=== PATIENT | male | born 1975 | race Caucasian/White ===

== ENCOUNTER 2022-09-10 01:01 | Inpatient (IN) | payer BC, SELFPAY ==
[2022-09-10] VITALS (13 sets, daily range): BP systolic 132–151; BP diastolic 95–109; PULSE 94–105; RESP 14–22; TEMP 36.1–36.8; O2SAT 91–98
--- NOTE | 2022-09-10 01:31 | CRLHL7_ITS ---
For Patients: As a result of the Century Cures Act, medical imaging exams and procedure reports are released immediately into your electronic medical record. You may view this report before your referring provider. If you have questions, please contact your health care provider. INDICATION: Bilateral leg swelling worsening in the past month. COMPARISON: None available FINDINGS: Ultrasound of the venous drainage of both lower extremities was performed using real-time cook scale imaging (B mode 2D), color flow Doppler and spectral analysis. There is no evidence of deep venous thrombosis. There is normal antegrade flow from the posterior tibial and peroneal veins superiorly through the common femoral vein in both legs. There is normal augmentation and compressibility of these veins. The superior and mid portions of the greater saphenous veins in the thighs are patent. IMPRESSION: No evidence of deep venous thrombosis on ultrasound examination of both lower extremities. Dictated by Nick Oseguera MD @ 09/10/2022 3:40:03 AM (Electronically Signed)
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
[2022-09-10 01:57] LABS: Basophils Absolute Auto 0.06 K/uL (0.00-0.30); Basophils Percent Auto 0.7 % (0.0-3.0); Eosinophils Absolute Auto 0.12 K/uL (0.00-0.50); Eosinophils Percent Auto 1.5 % (0.0-7.0); Hematocrit 44.9 % (37.0-53.0); Hemoglobin* 14.4 gm/dL (13.5-17.5); Immature Granulocytes Abs Auto 0.08 K/uL (0.00-0.30); Lymphocytes Absolute Auto 1.64 K/uL (0.90-2.90); Lymphocytes Percent Auto 20.4 % (20-44); Mean Corpuscular HGB Conc 32 gm/dL (32-36); Mean Corpuscular Hemoglobin 28 pg (26-34); Mean Corpuscular Volume 88 fL (80-100); Monocytes Percent Auto 9.4 % (0.0-11.0); Neutrophils Absolute Auto 5.37 K/uL (1.7-7.0); Platelet Count* 183 K/uL (140-440); RDW Coefficient of Variation % 13.7 % (11.5-15.5); Red Blood Count 5.08 m/uL (4.30-5.90); White Blood Count* 8.02 K/uL (4.50-11.00)
[2022-09-10 02:18] LABS: D Dimer Quantitative* 0.55 ug/ml (0.00-0.50)
[2022-09-10 02:22] LABS: Slide Review Reflex No
[2022-09-10 02:27] LABS: Chloride* 109 mmol/L (96-114)
[2022-09-10 02:28] LABS: Albumin* 3.1 g/dL (3.3-5.0); Potassium* 3.9 mmol/L (3.6-5.1); Sodium* 142 mmol/L (135-149)
[2022-09-10 02:30] LABS: Creatinine* 0.8 mg/dL (0.5-1.5); Estimated Glomerular Filt Rate 111 ml/min
[2022-09-10 02:31] LABS: Alanine Aminotransferase* 68 U/L (4-50); Alkaline Phosphatase* 65 U/L (40-150); Aspartate Amino Transferase* 58 U/L (12-35); Bilirubin Total* 0.4 mg/dL (0.1-1.5); Blood Urea Nitrogen* 15 mg/dL (5-24); Carbon Dioxide* 29 mmol/L (20-32); Glucose* 121 mg/dL (60-115); Total Protein* 5.6 g/dL (6.0-8.3)
[2022-09-10 02:32] LABS: Calcium* 7.9 mg/dL (8.4-10.6)
[2022-09-10 02:34] LABS: C Reactive Protein* 1.7 mg/dL (0.5-1.0)
[2022-09-10 03:42] LABS: NT Pro B Type NatriureticPept* 8110 pg/mL
--- NOTE | 2022-09-10 04:09 | CRLHL7_ITS ---
For Patients: As a result of the Century Cures Act, medical imaging exams and procedure reports are released immediately into your electronic medical record. You may view this report before your referring provider. If you have questions, please contact your health care provider. INDICATION: Edema COMPARISON: None TECHNIQUE: Two views of the chest were acquired FINDINGS: TUBES AND LINES: None. HEART AND MEDIASTINUM: Enlarged heart. LUNGS AND PLEURAL SPACES: Vascular an interstitial process probably representing pulmonary edema/congestive heart failure. No pleural effusion or pneumothorax. OSSEOUS STRUCTURES: Age-appropriate appearance. No acute focal finding. IMPRESSION: Enlarged heart. Vascular and interstitial process probably representing pulmonary edema/congestive heart failure appearance Dictated by Yg Marquez MD @ 09/10/2022 4:56:02 AM (Electronically Signed)
[2022-09-10 04:45] LABS: Troponin, Point-of-Care* 0.03 ng/ml (0.01-0.04)
[2022-09-10 04:46] LABS: Appearance Urine Clear (Clear); Bilirubin Urine Negative (Negative); Blood Urine Negative (Negative); Color Urine Yellow (Yellow); Glucose Urine Negative (Negative); Ketones Urine Negative (Negative); Leukocyte Esterase Urine Negative (Negative); Nitrite Urine Negative (Negative); Protein Urine 1+ (Negative); Specific Gravity Urine 1.025 (1.000-1.030); Urobilinogen Urine 0.2 (0.2-1.0)
[2022-09-10 04:53] LABS: Bacteria Urine Few; RBC Urine 0-2 (0-2); Squamous Epithelial Cell Urine Few (None-Few); WBC Urine 0-2 (0-5)
[2022-09-10] MEDS: POTASSIUM CHLORIDE 10 MEQ CAPSULE ER 40 MEQ PO (04:55)
[2022-09-10] MEDS: FUROSEMIDE 10 MG/ML inj 40 MG IVP ×4 (04:56→17:39)
--- NOTE | 2022-09-10 05:08 | ED.NURSE ---
Patient report called to Ann FIGUEREDO, patient to go to bed 260
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
--- NOTE | 2022-09-10 07:51 | PC.NURSE ---
Pt admitted at 0510. Alert and oriented x3, afebrile. Pt lung sounds were clear, no cough. Pt has edema in both legs. Pt is up ind, voiding, and tolerating therapeutic diet.
[2022-09-10 08:12] LABS: Procalcitonin* 0.08 ng/mL (<0.50)
[2022-09-10] MEDS: SODIUM CHLORIDE 0.9 % (FLUSH) 10 ML SYRINGE 5 ML IVF ×2 (08:25→21:09)
[2022-09-10] MEDS: POTASSIUM BICARB 25 MEQ EFFERVESCENT TAB PO ×2 (08:25→17:39)
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
[2022-09-10] MEDS: PERFLUTREN LIPID MICROSPHERES 2 ML VIAL IV (12:02)
[2022-09-10 14:30] LABS: Chloride* 103 mmol/L (96-114)
[2022-09-10 14:31] LABS: Potassium* 4.2 mmol/L (3.6-5.1); Sodium* 141 mmol/L (135-149)
[2022-09-10 14:33] LABS: Creatinine* 0.9 mg/dL (0.5-1.5); Estimated Glomerular Filt Rate 107 ml/min
[2022-09-10 14:34] LABS: Blood Urea Nitrogen* 16 mg/dL (5-24); Calcium* 8.3 mg/dL (8.4-10.6); Carbon Dioxide* 35 mmol/L (20-32); Glucose* 96 mg/dL (60-115)
[2022-09-10 14:44] LABS: Troponin I* 0.04 ng/mL (0.01-0.04)
--- NOTE | 2022-09-10 17:58 | PC.NURSE ---
Pt cooperative during shift. Pt had no complaints of pain during shift. Pt transfers with EZ Stand. Pt takes medications with applesauce. Pt was encouraged to keep legs up when in chair. Pt refused this and to wear oxygen at times during shift. Pt reeducated on importance of doing these items. Pt?s oxygen levels have been stable during shift ranging from 93%-94% on RA. Pt had some bouts of anxiety throughout shift see EMAR for intervention after redirection and music therapy attempts failed. ? ?
--- NOTE | 2022-09-10 18:01 | PC.NURSE ---
Dr. Wagner updated about Pt's weight loss from diaphoresing him. Hospitalist stated Lasix orders will be looked at tomorrow by AM hospitalist and possibly adjusted since last dose was given for 09/10/22. Dr. Wagner also stated he would put in orders for orthostatic Blood pressures for tomorrow morning.
[2022-09-10] MEDS: ENOXAPARIN 40 MG/0.4 ML INJ SUBCUT (21:09)
[2022-09-11] VITALS (12 sets, daily range): BP systolic 125–151; BP diastolic 74–114; PULSE 95–100; RESP 14–24; TEMP 36.4–37.1; O2SAT 91–95
[2022-09-11 03:09] LABS: Hemoglobin A1C* 5.79 % (0-5.6)
[2022-09-11] MEDS: FUROSEMIDE 10 MG/ML inj 40 MG IVP (06:15)
--- NOTE | 2022-09-11 06:45 | PC.NURSE ---
At 0415 pt reported feeling SOB. Oximeter was placed on left?index finger O2 sats were ranging between 85-86%.?Nurse raised HOB to 90 degrees, encouraged pt to deep breath and cough, pt used incentive spirometer x3 reaching 1200 ml per breath, pt did not cough after. Pt 02 sats did not increase. 1L oxygen via nasal canula was applied to pt. Titus was contacted and updated around 043. Titus called back around 439 with an order for O2 nasal cannula to maintain O2 sats of 90 and to discontinue O2 when pt is able to maintain sats of 92 or greater. Around 0600 am pt wanted oxygen off, pt is now on room air maintaining sats of 91-92% oxygen. ??
--- NOTE | 2022-09-11 06:46 | PC.NURSE ---
Pt alert and oriented x3. Afebrile. Pt denies pain, chest pian, SOB, N/V. Pt is up ind in room tolerating a therapeutic diet. Pt slept throughout most of night. Pt?s output was 1200 overnight and pt?s weight was 275.9 lbs?this morning 08/11/22 previous weight taken on evening shift 09/10/22 was 282.9 lbs. ??
[2022-09-11 06:54] LABS: HCO3 VBG 37 mmol/L (21-28); Ionized Calcium* 1.05 mmol/L (1.11-1.30); PCO2 VBG 50 mmHG (40-50); PO2 VBG 70.1 mmHG (25-47); pH VBG 7.474 (7.32-7.43)
[2022-09-11 06:57] LABS: Hematocrit 46.1 % (37.0-53.0); Hemoglobin* 15.1 gm/dL (13.5-17.5); Mean Corpuscular HGB Conc 33 gm/dL (32-36); Mean Corpuscular Hemoglobin 28 pg (26-34); Mean Corpuscular Volume 87 fL (80-100); Platelet Count* 184 K/uL (140-440); Red Blood Count 5.32 m/uL (4.30-5.90)
[2022-09-11 07:11] LABS: Slide Review Reflex No
[2022-09-11 07:23] LABS: Albumin* 3.2 g/dL (3.3-5.0); Chloride* 101 mmol/L (96-114)
[2022-09-11 07:24] LABS: Potassium* 4.1 mmol/L (3.6-5.1); Sodium* 139 mmol/L (135-149)
[2022-09-11 07:26] LABS: Aspartate Amino Transferase* 49 U/L (12-35); Bilirubin Total* 1.1 mg/dL (0.1-1.5); Carbon Dioxide* 37 mmol/L (20-32); Cholesterol* 171 mg/dL (90-199); Creatinine* 0.7 mg/dL (0.5-1.5); Estimated Glomerular Filt Rate 115 ml/min; Total Protein* 5.8 g/dL (6.0-8.3)
[2022-09-11 07:27] LABS: Alanine Aminotransferase* 63 U/L (4-50); Alkaline Phosphatase* 53 U/L (40-150); Blood Urea Nitrogen* 14 mg/dL (5-24); Calcium* 8.1 mg/dL (8.4-10.6); Glucose* 143 mg/dL (60-115); Triglycerides* 115 mg/dL (40-149)
[2022-09-11 07:28] LABS: HDL Cholesterol* 37 mg/dL (>=40); LDL Cholesterol Calculated 111 mg/dL (<100)
[2022-09-11] MEDS: POTASSIUM BICARB 25 MEQ EFFERVESCENT TAB PO ×2 (07:41→18:01)
[2022-09-11 08:05] LABS: NT Pro B Type NatriureticPept* 7170 pg/mL
[2022-09-11 08:07] LABS: Troponin I* 0.05 ng/mL (0.01-0.04)
[2022-09-11] MEDS: SODIUM CHLORIDE 0.9 % (FLUSH) 10 ML SYRINGE 5 ML IVF ×2 (08:21→20:17)
[2022-09-11 08:24] LABS: Thyroid Stimulating Hormone* 0.624 uIU/mL (0.270-4.20)
[2022-09-11] MEDS: 0.9 % SODIUM CHLORIDE 250 ml IV (08:24)
--- NOTE | 2022-09-11 09:16 | P.IMPN_ITS ---
Progress Note: A&P Assessment and plan (1) Dilated cardiomyopathy: Problem details: [facility] phone consult 09/11/22 -discussed ischemic workup - will pass while here. -swap lisinopril for valsartan -start aspirin -transition to oral lasix -add small dose of coreg, spironolactone -outpatient close f/u Echo 09/10 - Dilated cardiomyopathy Moderately increased left ventricular size, mild increased wall thickness, severely reduced global systolic function, calculated EF is about 24% Right ventricular cavity size is mildly enlarged, global systolic RV function is moderately reduced Moderately enlarged left atrium Mitral valve is normal mild mitral regurg The inferior vena cava is dilated Moderately increased estimated pulmonary pressures by tricuspid regurg velocity and right atrial pressure, 32+ RAP The plan is to diuresis and get guideline directed medical therapy sta rted/tolerated and get cards f/u established. Status: Acute (2) ADHD (attention deficit hyperactivity disorder): Problem details: continue current med but start decreasing freqency from TID to BID Status: Acute (3) Obesity: Problem details: noted. will be in discussion of plan going forward Status: Acute (4) Poor dentition: Status: Acute (5) Hyperlipidemia: Problem details: lipid profile unremarkable. Status: Acute Subjective Date Seen: 09/11/22 Interval history: Daily Progress Note - Hospital Medicine Day #: 2 CC: New onset CHF, dilated cardiomyopathy OVERNIGHT UPDATES FROM STAFF & MED, LAB, IMAGING UPDATES pt has lost 25lbs with lasix 40mg IV q8 for several doses. on RA. bored, restless to go home. 151/93 Pulse 99 Respiratory rate 24 92% on room air Temp 97.7? Starting weight 136.3 kilos Today's weight 124.9 kilos Delta is 25 lb CBC unremarkable PH is 7.47 Electrolytes are unremarkable. Function is stable at 0.7, potassium is stable at 4.1 Calcium is a little low at 1.05 Troponin went from 0.03-0.05 Not diabetic, A1c 5.8 TSH 0.6 Unremarkable lipid panel Objective: Vitals: see above Lungs: Clear. Cardiac: S1S2. 2-3+ pitting edema lower extremity. Disposition/Potential discharge - Likely to return to previous living situation. Total time is 35 minutes with greater than 50% spent in counseling and coordination of care. Exam Const: Vital Signs, click to edit/add: Vital Signs - 24 hr 09/10/22 11:40 09/10/22 15:02 09/10/22 15:27 Temperature 97.9 F 98.1 F Pulse Rate 101 H Pulse Rate [Left R adial] 105 H 103 H Pulse Rate [orthos tatic lying] Pulse Rate [orthos tatic sitting] Pulse Rate [orthos tatic standing] Respiratory Rate 20 18 Blood Pressure [Ri ght Arm] 134/95 H 148/107 H Blood Pressure [or thostatic lying Ri ght Arm] Blood Pressure [or thostatic sitting] Blood Pressure [or thostatic standing Right Arm] Pulse Oximetry 91 94 Oxygen Delivery Me thod Room Air Room Air 09/10/22 15:29 09/10/22 19:30 09/10/22 23:10 Temperature 97.9 F Pulse Rate 94 Pulse Rate [Left R adial] 103 H 100 Pulse Rate [orthos tatic lying] Pulse Rate [orthos tatic sitting] Pulse Rate [orthos tatic standing] Respiratory Rate 18 16 Blood Pressure [Ri ght Arm] 145/102 H Blood Pressure [or thostatic lying Ri ght Arm] Blood Pressure [or thostatic sitting] Blood Pressure [or thostatic standing Right Arm] Pulse Oximetry 94 Oxygen Delivery Me thod Room Air 09/10/22 23:10 09/10/22 23:10 09/11/22 05:55 Temperature 98.3 F Pulse Rate Pulse Rate [Left R adial] 94 97 Pulse Rate [orthos tatic lying] Pulse Rate [orthos tatic sitting] Pulse Rate [orthos tatic standing] Respiratory Rate 14 14 Blood Pressure [Ri ght Arm] 141/105 H Blood Pressure [or thostatic lying Ri ght Arm] Blood Pressure [or thostatic sitting] Blood Pressure [or thostatic standing Right Arm] Pulse Oximetry 95 91 Oxygen Delivery Me thod Room Air 09/11/22 04:35 09/11/22 06:00 09/11/22 07:25 Temperature 98.3 F 97.7 F Pulse Rate Pulse Rate [Left R adial] 97 99 Pulse Rate [orthos tatic lying] 96 Pulse Rate [orthos tatic sitting] 97 Pulse Rate [orthos tatic standing] 96 Respiratory Rate 14 24 Blood Pressure [Ri ght Arm] 140/90 H 150/114 H Blood Pressure [or thostatic lying Ri ght Arm] 132/96 H Blood Pressure [or thostatic sitting] 125/102 H Blood Pressure [or thostatic standing Right Arm] 130/91 H Pulse Oximetry 93 92 Oxygen Delivery Me thod Room Air Room Air 09/11/22 07:00 09/11/22 07:27 09/11/22 07:00 Temperature Pulse Rate 99 Pulse Rate [Left R adial] 99 99 Pulse Rate [orthos tatic lying] Pulse Rate [orthos tatic sitting] Pulse Rate [orthos tatic standing] Respiratory Rate 24 Blood Pressure [Ri ght Arm] 151/93 H Blood Pressure [or thostatic lying Ri ght Arm] Blood Pressure [or thostatic sitting] Blood Pressure [or thostatic standing Right Arm] Pulse Oximetry Oxygen Delivery Me thod Labs Labs: Laboratory Results - last 24 hr 09/10/22 09/10/22 09/11/22 01:45 14:00 06:20 WBC 8.80 RBC 5.32 Hgb 15.1 Hct 46.1 MCV 87 MCH 28 MCHC 33 Plt Count 184 VBG pH 7.474 H VBG pCO2 50 VBG pO2 70.1 H VBG HCO3 37 H Sodium 141 139 Potassium 4.2 4.1 Chloride 103 101 Carbon Dioxide 35 H 37 H BUN 16 14 Creatinine 0.9 0.7 Estimated GFR 107 115 Glucose 96 143 H Hemoglobin A1c 5.79 H Lactate 1.0 Calcium 8.3 L 8.1 L Ionized Calcium Emelyn 1.05 L Magnesium 2.0 Total Bilirubin 1.1 AST 49 H ALT 63 H Alkaline Phosphatase 53 Troponin I 0.04 0.05 H C-Reactive Protein 2.0 H NT-Pro-B Natriuret Pep 7170 Total Protein 5.8 L Albumin 3.2 L Triglycerides 115 Cholesterol 171 LDL Cholesterol, Calc 111 H HDL Cholesterol 37 L TSH 0.624
[2022-09-11] MEDS: lisinopriL 5 MG TABLET PO (09:25)
[2022-09-11] MEDS: SPIRONOLACTONE 25 MG TABLET 12.5 MG PO (14:13)
[2022-09-11] MEDS: FUROSEMIDE 40 MG TABLET PO (14:14)
--- NOTE | 2022-09-11 18:21 | PC.NURSE ---
End of Shift: Patient pleasant and cooperative. Patient vitally stable, lungs clear, BS WNL, IV intact. Patient independent in room, and denies pain. Patient urinating well and had 1 BM. Patient tolerating regular diet. Tele=NSR.
[2022-09-11] MEDS: carvediloL 6.25 MG TABLET 3.125 MG PO (20:16)
[2022-09-11] MEDS: ENOXAPARIN 40 MG/0.4 ML INJ SUBCUT (20:16)
[2022-09-12 02:27] VITALS: BP 123/103; PULSE 96; RESP 18; TEMP 36.4; O2SAT 95
--- NOTE | 2022-09-12 04:16 | PC.NURSE ---
Pt rested well this night. Up IND in room and voiding large amounts. BP remains elevated. Afebrile. Reporting zero pain. HR controlled. 1+ edema Bilat LEs. LS Clear.
[2022-09-12 04:44] VITALS: O2SAT 96
[2022-09-12 06:06] VITALS: BP 121/96; BP 126/90; BP 128/82; PULSE 100; PULSE 97; PULSE 98
[2022-09-12 07:00] VITALS: BP 126/78; PULSE 90; PULSE 94; RESP 24; TEMP 36.8; O2SAT 91
[2022-09-12 07:30] LABS: HCO3 VBG 35 mmol/L (21-28); Ionized Calcium* 1.08 mmol/L (1.11-1.30); PCO2 VBG 53 mmHG (40-50); PO2 VBG 67.6 mmHG (25-47)
[2022-09-12 07:48] LABS: Chloride* 99 mmol/L (96-114); Potassium* 4.2 mmol/L (3.6-5.1); Sodium* 137 mmol/L (135-149)
[2022-09-12 07:51] LABS: Blood Urea Nitrogen* 14 mg/dL (5-24); Carbon Dioxide* 34 mmol/L (20-32); Creatinine* 0.7 mg/dL (0.5-1.5); Estimated Glomerular Filt Rate 115 ml/min; Glucose* 194 mg/dL (60-115)
[2022-09-12 07:52] LABS: Calcium* 8.3 mg/dL (8.4-10.6); Magnesium* 2.1 mg/dL (1.5-2.6)
[2022-09-12 08:03] LABS: Troponin I* 0.03 ng/mL (0.01-0.04)
[2022-09-12 08:10] LABS: NT Pro B Type NatriureticPept* 5090 pg/mL
[2022-09-12] MEDS: POTASSIUM BICARB 25 MEQ EFFERVESCENT TAB PO (09:12)
[2022-09-12] MEDS: ASPIRIN 81 MG TABLET EC PO (09:12)
[2022-09-12] MEDS: carvediloL 6.25 MG TABLET 3.125 MG PO (09:12)
[2022-09-12] MEDS: SPIRONOLACTONE 25 MG TABLET 12.5 MG PO (09:13)
[2022-09-12] MEDS: VALSARTAN 80 MG TABLET 40 MG PO (09:13)
[2022-09-12] MEDS: FUROSEMIDE 40 MG TABLET 80 MG PO (09:14)
[2022-09-12 11:00] VITALS: BP 114/73; PULSE 97; RESP 24; O2SAT 95
[2022-09-12 15:00] VITALS: RESP 24
--- NOTE | 2022-09-12 15:17 | NUTR.NU ---
MATTIE with diet education related to new diagnosis of CHF. 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 ([employer]ural postal mail delivery). Nutrition education provided on a low sodium diet related to congestive heart failure.? Verbal and written information provided. Recommend limiting sodium to 2,000 mg per day.? Discussed foods recommended and to avoid.? Handouts provided from [facility] on heart failure nutrition therapy, sodium content of foods, heart healthy label reading tips, sodium-free flavoring tips and heart healthy cooking and shopping tips.? Patient verbalized understanding.??Stated the substitutes he could make for high sodium foods. Especially willing to increase fruits and vegetables. Knows this would be healthier overall. RDN's contact information was provided and patient was encouraged to call with questions.?
--- NOTE | 2022-09-12 16:01 | PC.NURSE ---
Addendum entered by Cheri Tarango RN 09/12/22 16:07: Pt was not given 1400 Lasix before discharge. Database Developer called and spoke to pt over phone at 1550. Pt stated they picked up Rx. Database Developer instructed pt to take the second dose of Lasix now, and to take all second dose prescriptions in evening Original Note: Nursing Care Hours: [id number] Pt this shift calm and cooperative, alert and oriented. No c/o chest pain or SOB. Tele is NSR. Independent in room. Independent elimination. 1750 u/o pale yellow. Two BM per pt. 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 Pt agreed to try and calling by self, pt eager to go home. Hospitalist made aware, follow-up call will be made in coming days to verify appointment and to check pt status.
--- NOTE | 2022-09-12 16:25 | P.DS_ITS ---
DS: Providers Provider Date Seen: 09/12/22 Date of admission: 09/10/22 07:31 Primary care physician: Severo Delarosa MD Admitting Clinician: Cheri Garcia MD Attending Physician on discharge: Meche Cassidy MD [facility] Date of Discharge: 09/12/22 DS: Diagnosis Discharge Diagnosis (1) Dilated cardiomyopathy: Status: Acute Problem details: Likely viral myocarditis, ischemia was less of a concern. No obvious or recurrent arrhythmia or ectopy. Sinus tach and hypertensive while he was here. -discussed ischemic workup - will pass while here. -valsartan, aspirin, Coreg, spironolactone -transition to titrated his Lasix to 80 mg b.i.d. with potassium and calcium replacement -outpatient close f/u Echo 09/10 - Dilated cardiomyopathy Moderately increased left ventricular size, mild increased wall thickness, severely reduced global systolic function, calculated EF is about 24% Right ventricular cavity size is mildly enlarged, global systolic RV function is moderately reduced Moderately enlarged left atrium Mitral valve is normal mild mitral regurg The inferior vena cava is dilated Moderately increased estimated pulmonary pressures by tricuspid regurg velocity and right atrial pressure, 32+ RAP (2) ADHD (attention deficit hyperactivity disorder): Status: Acute Problem details: continue current med but start decreasing freqency from TID to BID (3) Obesity: Status: Acute Problem details: noted. will be in discussion of plan going forward DS: Summary Hospital Course Hospital Course: HOSPITALIST DISCHARGE SUMMARY ATTENDING PHYSICIAN: Meche Cassidy MD FINAL DIAGNOSIS: New onset CHF (systolic, acute, new York Heart classification 2; HFrEF) Dilated cardiomyopathy ADHD HOSPITAL FOLLOWUP ISSUES: 1. Cardiology: Appointment will be made with the [facility] heart failure clinic. He is to weigh himself every day. Adjustment to his Lasix as needed was dictated into the discharge patient summary. Ischemia and myocarditis workup pending 2. PCP establishment. He chews tobacco, he is on ADHD meds and he needs weight loss. REFERRALS WHILE ADMITTED: Phone consultation with Cardiology REFERRALS AFTER DISCHARGE: Cardiology BRIEF HOSPITAL COURSE: Nano is a 47-year-old male who presented in acute heart failure. This was a new diagnosis. He had 3+ pitting edema, recent 35 lb weight gain, poor exercise tolerance for the last 3 months. No evidence of ACS upon presentation. Workup revealed a dilated cardiomyopathy with an EF between 20 and 25%. He was diuresed initially with IV Lasix and then a p.o. regimen. We initiated oral guideline directed therapy which included Lasix, Coreg, valsartan, aspirin, spironolactone. We maintained his potassium levels and followed his creatinine. He had over 25 lb weight loss during this admission. He was discharged in improved condition with outpatient workup and management to follow. SUBSTANTIVE NOTATIONS ON IMAGING, LAB, MICROBIOLOGY/PATHOLOGY STUDIES: Echo 09/10 - Dilated cardiomyopathy Moderately increased left ventricular size, mild increased wall thickness, severely reduced global systolic function, calculated EF is about 24% Right ventricular cavity size is mildly enlarged, global systolic RV function is moderately reduced Moderately enlarged left atrium Mitral valve is normal mild mitral regurg The inferior vena cava is dilated Moderately increased estimated pulmonary pressures by tricuspid regurg velocity and right atrial pressure, 32+ RAP Initial weight was 300 lb, down to 275 at discharge. Initial BNP was 7200, down to 5000 at discharge. No evidence of diabetes, hypo or hyperthyroidism and he had a unremarkable lipid panel. His calcium was low and this was replaced. DISCHARGE MEDICATIONS: See Reconciled list - SIGNIFICANT CHANGES: See Mar for several medication REVIEW OF SYSTEMS No new chest pain or dyspnea Pain controlled No voiding difficulties Tolerating diet challenge PHYSICAL EXAM: CONSTITUTIONAL: VITAL SIGNS: see record. HEENT: Normocephalic, atraumatic. PERRL, EOMI, conjunctivae pink, no scleral icterus. Ears and nose externally normal. Pharynx normal. NECK: No JVD. No carotid bruit, no thyromegaly, no adenopathy. CHEST: Clear to auscultation bilaterally. HEART: S1 and S2 normal. Edema ABDOMEN: Soft, nontender. Normal bowel sounds. MUSCULOSKELETAL: No gross joint deformity or swelling. NEURO: Cranial nerves intact. Grossly intact. No asymmetric findings. SKIN: No rashes, petechiae, concerning changes PSYCHIATRIC: Mood euthymic. DISPOSITION: Home with friends Time spent on discharge 37 minutes. Time Spent with Patient Time attestation: Total time spent providing and/or coordinating discharge services: Exam Const: Vital Signs, click to edit/add: Vital Signs - 24 hr 09/11/22 19:11 09/11/22 22:08 09/11/22 22:54 Temperature 98.7 F 97.5 F L Pulse Rate 97 Pulse Rate [Left R adial] 96 96 Pulse Rate [orthos tatic lying] Pulse Rate [orthos tatic sitting] Pulse Rate [orthos tatic standing] Respiratory Rate 18 18 Blood Pressure [Le ft Arm] 135/107 H 126/97 H Blood Pressure [or thostatic lying Ri ght Arm] Blood Pressure [or thostatic sitting] Blood Pressure [or thostatic standing Right Arm] Pulse Oximetry 95 95 Oxygen Delivery Me thod Room Air Room Air 09/11/22 22:55 09/12/22 02:27 09/12/22 04:44 Temperature 97.5 F L Pulse Rate Pulse Rate [Left R adial] 96 96 Pulse Rate [orthos tatic lying] Pulse Rate [orthos tatic sitting] Pulse Rate [orthos tatic standing] Respiratory Rate 18 18 Blood Pressure [Le ft Arm] 123/103 H Blood Pressure [or thostatic lying Ri ght Arm] Blood Pressure [or thostatic sitting] Blood Pressure [or thostatic standing Right Arm] Pulse Oximetry 95 96 Oxygen Delivery Me thod Room Air 09/12/22 06:06 09/12/22 07:00 09/12/22 07:00 Temperature Pulse Rate 90 Pulse Rate [Left R adial] 94 Pulse Rate [orthos tatic lying] 98 Pulse Rate [orthos tatic sitting] 97 Pulse Rate [orthos tatic standing] 100 Respiratory Rate 24 Blood Pressure [Le ft Arm] Blood Pressure [or thostatic lying Ri ght Arm] 126/90 H Blood Pressure [or thostatic sitting] 121/96 H Blood Pressure [or thostatic standing Right Arm] 128/82 Pulse Oximetry Oxygen Delivery Me thod 09/12/22 07:00 09/12/22 11:00 09/12/22 15:00 Temperature 98.2 F Pulse Rate Pulse Rate [Left R adial] 94 97 Pulse Rate [orthos tatic lying] Pulse Rate [orthos tatic sitting] Pulse Rate [orthos tatic standing] Respiratory Rate 24 24 24 Blood Pressure [Le ft Arm] 126/78 114/73 Blood Pressure [or thostatic lying Ri ght Arm] Blood Pressure [or thostatic sitting] Blood Pressure [or thostatic standing Right Arm] Pulse Oximetry 91 95 Oxygen Delivery Me thod Room Air Room Air DS: Data Data Completed and Pending Labs on day of discharge: Labs from last 24 hours 09/12/22 07:19 VBG pH 7.430 VBG pCO2 53 H VBG pO2 67.6 H VBG HCO3 35 H Sodium 137 Potassium 4.2 Chloride 99 Carbon Dioxide 34 H BUN 14 Creatinine 0.7 Estimated GFR 115 Glucose 194 H Calcium 8.3 L Ionized Calcium Emelyn 1.08 L Magnesium 2.1 Troponin I 0.03 NT-Pro-B Natriuret Pep 5090 Discharge Plan Discharge Disposition: Home, Self-Care Date of Admission: 09/10/22 07:31 Attending Provider on Discharge: Meche Cassidy Primary Care Provider: Severo Delarosa Condition: Stable Anticipated Discharge Date/Time: 09/12/22 11:39 Discharge Medications: New carvedilol 6.25 mg Tablet 3.125 mg PO BID Qty: 60 0RF valsartan 80 mg Tablet 40 mg PO DAILY Qty: 30 0RF aspirin 81 mg Tablet,Delayed Release (Dr/Ec) 81 mg PO DAILY Qty: 90 0RF spironolactone 25 mg Tablet 12.5 mg PO DAILY Qty: 30 0RF Effer-K 25 mEq Tablet, Effervescent 25 meq PO BIDWM Qty: 60 0RF calcium carbonate-vitamin D3 [Oyster Shell Calcium-Vit D3] 500 mg-5 mcg (200 unit) Tablet 2 tab PO BIDWM Qty: 120 0RF furosemide [Lasix] 40 mg tablet 80 mg PO BID Qty: 120 0RF Rx Instructions: this is the correct number to dispense. the dose is 80mg but I neglected to realize it was 40mg tabs. Continued cyclobenzaprine 10 mg tablet 10 mg PO BID PRN (Reason: muscle spasm) Qty: 30 0RF Changed dextroamphetamine-amphetamine 20 mg tablet 20 mg PO BID Qty: 90 0RF Discontinued doxycycline hyclate 100 mg capsule 100 mg PO BID Qty: 20 0RF albuterol sulfate 90 mcg/actuation HFA aerosol inhaler 2 inh inhalation Q6H PRN (Reason: shortness of breath or wheezing) Qty: 8.5 0RF codeine-guaifenesin 10-100 mg/5 mL liquid 10 ml PO BID PRN (Reason: cough) naproxen 500 mg tablet 500 mg PO BID PRN (Reason: pain) Discharge Orders: Discharge Order (Routine); Ordered 09/12/22 Ordered By: Meche Cassidy Patient Education: Spironolactone (By mouth), Furosemide (By mouth), Potassium Chloride (By mouth), Aspirin (By mouth), Valsartan (By mouth), Carvedilol (By mouth), Calcium/Vitamin D Supplement (By mouth), Heart Failure (DC) Additional Instructions: 1. Weigh yourself naked every morning after you pee and before you eat or drink. Target weight is 276 or less. If you weigh in at 282-284lbs take an additional dose of Lasix (40mg) and an extra potassium pill at the same time you'd take the regular dose. If you weigh in greater than 285 -do the extra dose but put a call into primary care and/or lime filter operator. 2. Im establishing you with primary care at [facility] in [place] and with [facility]. Activity Level: Activity as Tolerated Discharge Diet: Heart Healthy (2 gm sodium, low fat) Follow Up Appointments: [facility] [Provider Group] - 09/19/22 (1-2 weeks - Ask for an appt for a new patient consult in the Congestive Heart Failure clinic. It's ok for him to be booked at the [place] location. I'd like to have him seen within 1-2 weeks. ) Ilene Blackmon DO [Staff Physician] - 09/22/22 11:45 am ([facility] and [facility], with Dr. Michelle. Needs BMP drawn morning before or of appt.) Forms: [employer] Info Instructions
== END 2022-09-12 14:45 | disposition home or self-care (01) | DRG 194 ==
LOC: ED 04:56 → MEDSURG 05:10
PROVIDERS: Family Medicine; Internal Medicine; Admitting Provider Family Medicine; Emergency Provider Family Medicine; PCP Family Medicine; Visit Provider Family Medicine
DX: I50.21 Acute systolic (congestive) heart failure (principal); I42.0 Dilated cardiomyopathy; E66.9 Obesity, unspecified; F90.9 Attention-deficit hyperactivity disorder, unspecified type; E78.5 Hyperlipidemia, unspecified; K08.9 Disorder of teeth and supporting structures, unspecified; Z72.0 Tobacco use
CPT/HCPCS: 36415; 71046; 80048; 80053; 80061; 81003; 81015; 82330; 82803; 83036; 83605; 83735; 83880; 84145; 84443; 84484; 85025; 85027; 85379; 86140; 87086; 93005; 93306; 93970; 94761; 99199; 99284; 99285; A9270; J0610; J1650; J1940; J7050; Q9957

== ENCOUNTER 2025-05-17 22:23 | Emergency (ER) | payer BC, SELFPAY ==
--- OUTSIDE RECORDS SUMMARY | 2025-05-17 22:25 | XMS_ITS | Clinical Summary ---
Author Organization [employer] [facility] [employer] [facility] Address [address] [place] [id number] Care Team Providers Care Nursery Attendant Name Role Phone Darlene Michelle MD Primary Care Provider Allergies No known active allergies Medications MedicationSigDispense QuantityRefillsLast FilledStart DateEnd DateStatus carvediloL (COREG) 6.25 mg tablet Indications:Cardiomyopathy, unspecified type (HC)Take 0.5 Tablets (3.125 mg) by mouth two times daily. 180 Tablet ctive Additional Information Patient not taking.Reported on 03/13/2025 dapagliflozin propanediol (Farxiga) 10 mg tablet Indications:Cardiomyopathy, unspecified type (HC)Take 1 Tablet (10 mg) by mouth once daily. 90 Tablet ctive Additional Information Patient not taking.Reported on 03/13/2025 furosemide (LASIX) 40 mg tablet Indications:Cardiomyopathy, unspecified type (HC)Take 1 Tablet (40 mg) by mouth two times daily. 180 Tablet ctive Additional Information Patient not taking.Reported on 03/13/2025 sacubitril-valsartan (ENTRESTO 49 MG-51 MG TABLET) 49-51 mg tablet Indications:Cardiomyopathy, unspecified type (HC)Take 1 Tablet by mouth two times daily. 180 Tablet ctive Additional Information Patient not taking.Reported on 03/13/2025 spironolactone (ALDACTONE) 25 mg tablet Indications:Cardiomyopathy, unspecified type (HC)Take 1 Tablet (25 mg) by mouth once daily. 90 Tablet ctive Additional Information Patient not taking.Reported on 03/13/2025 dextroamphetamine-amphetamine (AdderalL) 20 mg tablet Indications:Attention deficit hyperactivity disorder (ADHD), predominantly inattentive typeTake 1 Tablet (20 mg) by mouth two times daily. 60 Tablet 05/12/2025tive dextroamphetamine-amphetamine (AdderalL) 20 mg tablet Indications:Attention deficit hyperactivity disorder (ADHD), predominantly inattentive typeTake 1 Tablet (20 mg) by mouth two times daily. 60 Tablet Expired Active Problems ProblemNoted DateDiagnosed DateDilated jbmyvjtoazxran81/31/2024Hyperlipidemia 03/20/20242749Dbgqtks62/31/2024 Encounters DateTypeDepartmentCare HjnsIostuzspokb12/24/2025 8:25 AM CDTOffice Visit [facility] [address] [place] [address] Darlene Michelle MD Physical (49 yr/Medication refills)03/13/2025Travelfrom Last 3 Months Immunizations ImmunizationAdministration DatesNext DueInfluenza, TBN56406/07/2018,06/29/2017 Pneumococcal Conj 20-valent (Prevnar 20)03/13/2025Tdap1,11/14/2010 Social History Tobacco UseTypesPacks/DayYears UsedDateSmoking Tobacco: NeverSmokeless Tobacco: CurrentChewLast attempted to quit: 02/01/2014 Tobacco Cessation:Ready to Q uit: No; Counseling Given: Not Answered Alcohol UseStandard Drinks/WeekCommentsNo0 (1 standard drink = 0.6 oz pure alcohol)PHQ-2AnswerDate RecordedPHQ-2 TOTAL LPLAL023Social Connections AnswerDate RecordedDo you often feel lonely or isolated from those around you?0 03/20/2024lcohol UseAnswerDate RecordedHow often do you have a drink containing alcohol?verage Number of DrinksNot on file03/13/2025Frequency of Binge DrinkingNot on file03/13/2025Financial Resource StrainAnswerDate Recorded Difficulty of Paying Living Jifuewzy000ifficulty of Paying Living ExpensesNot on file03/20/2024Food InsecurityAnswerDate RecordedDo you worry your food will run out before you are able to buy more?Transportation NeedsAnswerDate RecordedDoes lack of transportation keep you from medical appointments?oes lack of transportation keep you from work, meetings or getting things that you need?Housing StabilityAnswerDate Recorded What is your housing situation today?UtilitiesAnswerDate RecordedDo you have trouble paying for utilities (for example, heat, electricity, water, phone)?Sex and Gender InformationValueDate RecordedSex Assigned at BirthNot on fileLegal VrlQizn6606/03/2012 5:24 AM CSTGender IdentityNot on file Sexual OrientationNot on file Last Filed Vital Signs Vital SignReadingTime TakenCommentsBlood Wkjsazax034/8903/13/2025 8:27 AM CDT Aikgc72270/24/2025 8:27 AM DUBPbaglmnftiw29.6 ??C (97.9 ??F)06/20/2016 2:24 PM CSTRespiratory Rhev303310/05/2022 2:05 PM CDTOxygen Wjtvzrxqpe63%03/13/2025 8:27 AM CDTInhaled Oxygen Concentration--Icchjd265.4 kg (298 lb 6.4 oz)03/13/2025 8:27 AM ZEEJwakyy777.6 cm (5' 11.5)03/13/2025 8:27 AM CDTBody Mass Index41.04 03/13/2025 8:27 AM CDT Plan of Treatment DateTypeDepartmentCare Team (Latest Contact Info)Epqcbfrwaiv27/13/2026 2:00 PM CSTOffice Visit [facility] [address] [facility] [place] [address] Carlton Franco MD [address] [facility] [address] [place] [place] [id number] Health MaintenanceDue DateLast DoneCommentsHepatitis B series for 19+ (1 of 3 - 19+ 3-dose series)08/05/1995Colonoscopy through age 7502COVID-19 vaccine series ( - 2024- season)2025Influenza Vaccine (#1)511/, 06/29/2017Depression screening for age 12+/05/2024, 09/17/2024, 06/20/2016BMI (ht and wt on same day) for age 18+, 09/17/2024, 03/20/2024, Additional history existsLipids for age 45-7503/13/2030 03/13/2025, 08/27/2012Tetanus ilanoef13, 11/14/2010HIV for age 15-46Gfajqkqjv53/24/2025Hepatitis C screening for age 18-26Wqqawouiw94/24/2025 Pneumococcal series for age 6-89Gscilnphv20/24/2025 Procedures Procedure NamePriorityDate/TimeAssociated DiagnosisCommentsBASIC METABOLIC PANEL Mbdhwvm2103/13/2025 9:23 AM CDT Dilated cardiomyopathy (HC) ANTI HIV 1/1Izqqbav28/24/2025 9:23 AM CDT Screening for HIV (human immunodeficiency virus) ANTI GQCDrztpst28/24/2025 9:23 AM CDT Need for hepatitis C screening test LIPID PANEL W REFLEX MEASURED VWQIrthygc11/24/2025 9:23 AM CDT Screening for lipid disorders from Last 3 Months Results * (ABNORMAL) LIPID PANEL W REFLEX MEASURED LDL [WCG8534] (03/13/2025 9:23 AM CDT)ComponentValueRef RangeTest MethodAnalysis TimePerformed AtPathologist SignatureCHOLESTEROL, ZKJRA690(H)<200 mg/dL03/14/2025 5:38 AM CDTQUEST TDYCENEYIGVFBBOLOUDHBNAM428(H)<150 mg/dL03/14/2025 5:38 AM CDTQUEST DIAGNOSTICSComment: If a non-fasting specimen was collected, consider repeat triglyceride testing on a fasting specimen if clinically indicated. Tari et al. J. of Clin. Lipidol. 2015;9:129-169. HDL TWPPZDHUPXP03> OR = 40 mg/dL03/14/2025 5:38 AM CDTQUEST DIAGNOSTICSNON HDL KBHGMLZNPMY909(H)<130 mg/dL (calc)03/14/2025 5:38 AM CDTQUEST DIAGNOSTICS Comment: For patients with diabetes plus 1 major ASCVD risk factor, treating to a non-HDL-C goal of <100 mg/dL (LDL-C of <70 mg/dL) is considered a therapeutic option. CHOL/HDLC RATIO5.1(H)<5.0 (calc)03/14/2025 5:38 AM CDTQUEST DIAGNOSTICS LDL-GLAXKVFCFHB543(H)mg/dL (calc)03/14/2025 5:38 AM CDTQUEST DIAGNOSTICSComment: Reference range: <100 Desirable range <100 mg/dL for primary prevention; <70 mg/dL for patients with CHD or diabetic patients with > or = 2 CHD risk factors. LDL-C is now calculated using the Jairon-Jocelyn calculation, which is a validated novel method providing better accuracy than the Friedewald equation in the estimation of LDL-C. Jairon SS et al. RADHA. 2013;310(19): 6649-2821 (http://education.[employer]/faq/TYI463) Specimen (Source)Anatomical Location / LateralityCollection Method / Volume Collection TimeReceived TimeBloodBLOOD SPECIMEN / UnknownQuest Collect / Unknown 03/13/2025 9:23 AM CDT1 9:23 AM CDT Narrative Authorizing ProviderResult TypeResult StatusDarlene Michelle MDCHEMISTRY Final ResultPerforming OrganizationAddressCity/State/ZIP CodePhone Number [facility] [address] [place] [address], * ANTI HCV (03/13/2025 9:23 AM CDT)ComponentValueRef RangeTest MethodAnalysis TimePerformed AtPathologist SignatureHEPATITIS C ANTIBODYNON-REACTIVE NON-VTXUFPYR22/27/2025 10:10 AM CDTQUEST DIAGNOSTICSComment: HCV antibody was non-reactive. There is no laboratory evidence of HCV infection. In most cases, no further action is required. However, if recent HCV exposure is suspected, a test for HCV RNA (test code 29569) is suggested. For additional information please refer to http://education.NewsiT/faq/AKL77v1 (This link is being provided for informational/ educational purposes only.) Specimen (Source)Anatomical Location / LateralityCollection Method / Volume Collection TimeReceived TimeBloodBLOOD SPECIMEN / UnknownQuest Collect / Unknown 03/13/2025 9:23 AM CDT1 9:23 AM CDT Narrative Authorizing ProviderResult TypeResult StatusAndrademonserrat Tori [facility] MDSEND OUTS Final ResultPerforming OrganizationAddressty/State/ZIP CodePhone Number [facility] [address] [address], * ANTI HIV 1/2 [06145.0] (03/13/2025 9:23 AM CDT)ComponentValueRef RangeTest MethodAnalysis TimePerformed AtPathologist SignatureHIV FINAL INTERPRETATOIN HIV KNUPUTMH08/27/2025 10:10 AM PartschannelTQUEST DIAGNOSTICSComment: HIV-1 antigen and HIV-1/HIV-2 antibodies were not detected. There is no laboratory evidence of HIV infection. HIV AG/AB, 4TH ZQHREM-GHELRCSVZZJ-VOSSLGZA69/27/2025 10:10 AM CDTQUEST DIAGNOSTICSSpecimen (Source)Anatomical Location / LateralityCollection Method / VolumeCollection TimeReceived TimeBloodBLOOD SPECIMEN / UnknownQuest Collect / Qvqfdvt4403/13/2025 9:23 AM CDT1 9:23 AM CDT Narrative Authorizing ProviderResult TypeResult StatusAndrademonserrat Tori [facility] MDSEND OUTS Final ResultPerforming OrganizationAddressty/State/ZIP CodePhone Number [facility] [address] [phone], * (ABNORMAL) BASIC METABOLIC PANEL (03/13/2025 9:23 AM CDT)ComponentValueRef RangeTest MethodAnalysis TimePerformed AtPathologist UuhkwkzjeXHXAIH757834 - 146 mmol/L1 5:38 AM CDTQUEST DIAGNOSTICSPOTASSIUM4.43.5 - 5.3 mmol/L 03/14/2025 5:38 AM CDTQUEST DIAGNOSTICSCARBON YORBAQO25(H)20 - 32 mmol/L 03/14/2025 5:38 AM CDTQUEST MHFGLSMALFCNGYSBTM3111 - 99 mg/dL03/14/2025 5:38 AM CDTQUEST DIAGNOSTICSComment: ? Fasting reference interval CALCIUM9.58.6 - 10.3 mg/dL03/14/2025 5:38 AM CDTQUEST DIAGNOSTICSCREATININE0.97 0.60 - 1.29 mg/dL03/14/2025 5:38 AM CDTQUEST DIAGNOSTICSBUN/CREATININE RATIOSEE NOTE: (calc)03/14/2025 5:38 AM CDTQUEST DIAGNOSTICSComment: ?? Not Reported: BUN and Creatinine are within ?? reference range. ? EGFR96> OR = 60 mL/min/1.53f99603/14/2025 5:38 AM CDTQUEST DIAGNOSTICSUREA NITROGEN (BUN)167 - 25 mg/dL03/14/2025 5:38 AM CDTQUEST DIAGNOSTICSELECTROLYTE KXGDBLE02 - 17 mmol/L (calc)03/14/2025 5:38 AM CDTQUEST SUMDFLQEAPEQXMGSGBD73252 - 110 mmol/L1 5:38 AM CDTQUEST DIAGNOSTICSSpecimen (Source)Anatomical Location / LateralityCollection Method / VolumeCollection TimeReceived TimeBlood BLOOD SPECIMEN / UnknownQuest Collect / Epkijjs7503/13/2025 9:23 AM CDT1 9:23 AM CDT Narrative Authorizing ProviderResult TypeResult StatusDarlene Michelle MDCHEMISTRY Final ResultPerforming OrganizationAddressCity/State/ZIP CodePhone Number [facility] [place] [phone], from Last 3 Months Additional Health Concerns InfectionOnset DateLast IndicatedMRSA Comment:Abscess, right buttocks. 02/19/2014 Insurance * Guarantor: Nano Zuniga TypeRelation to PatientDate of BirthPhone Billing AddressPersonal/JqemptKibi95/17/1976 [address] [place] [address] Care Teams Team MemberRelationshipSpecialtyStart DateEnd Darlene Michelle MD [address] [place] [address] PCP - GeneralFamily Dlidfmij12/24/25
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
[2025-05-17 22:35] VITALS: BP 137/90; PULSE 108; RESP 18; TEMP 36.9; O2SAT 93; BMI 41.8
--- NOTE | 2025-05-17 22:50 | CRLHL7_ITS ---
For Patients: As a result of the Century Cures Act, medical imaging exams and procedure reports are released immediately into your electronic medical record. You may view this report before your referring provider. If you have questions, please contact your health care provider. Indication: Dyspnea and cough. History of congestive heart failure. Technique: Two views of the chest. Comparison: Chest x-ray 09/10/2022. Findings/Impression: Cardiomegaly with mild vascular congestion. No confluent airspace opacity. No convincing radiographic evidence of interstitial edema. No pleural effusion or pneumothorax. No acute osseous abnormality. Dictated by Zheng Quintana MD @ 05/17/2025 11:12:55 PM (Electronically Signed)
[2025-05-17 23:19] LABS: Hematocrit* 49.7 % (37.0-53.0); Hemoglobin* 15.8 gm/dL (13.5-17.5); Immature Granulocytes Abs Auto 0.02 K/uL (0.00-0.30); Immature Granulocytes Pct Auto 0.4 %; Lymphocytes Absolute Auto 1.47 K/uL (0.90-2.90); Mean Corpuscular HGB Conc 32 gm/dL (32-36); Mean Corpuscular Hemoglobin 29 pg (26-34); Mean Corpuscular Volume 90 fL (80-100); RDW Coefficient of Variation % 13.3 % (11.5-15.5); Red Blood Count* 5.53 m/uL (4.30-5.90); White Blood Count* 5.06 K/uL (4.50-11.00)
[2025-05-17 23:21] LABS: Slide Review Reflex No
[2025-05-17 23:27] LABS: PCR FLU A POSITIVE PCR FLU A (Negative); PCR FLU B Negative PCR FLU B (Negative); PCR RSV Negative PCR RSV (Negative); SARS PCR* Negative SARS-CoV-2 (Negative)
[2025-05-17] MEDS: IPRAT-ALBUT 0.5-2.5 MG/3 ML NEB 1 NEB IH (23:31)
[2025-05-17 23:32] LABS: Chloride* 99 mmol/L (96-114); Potassium* 4.1 mmol/L (3.6-5.1); Sodium* 141 mmol/L (135-149)
[2025-05-17 23:35] LABS: Anion Gap 5 mEq/L (7-15); Blood Urea Nitrogen* 12 mg/dL (5-24); Carbon Dioxide* 37 mmol/L (20-32); Creatinine* 0.9 mg/dL (0.5-1.5); Est. Creatinine Clearance* 103.64; Estimated Glomerular Filt Rate 105 ml/min
[2025-05-17 23:36] LABS: Calcium* 8.9 mg/dL (8.4-10.6); Glucose* 104 mg/dL (60-115)
[2025-05-17 23:45] LABS: NT Pro B Type NatriureticPept* 3590 pg/mL (See Note)
[2025-05-17] MEDS: OSELTAMIVIR PHOSPHATE 75 MG CAPSULE PO (23:56)
[2025-05-17] MEDS: FUROSEMIDE 10 MG/ML inj 40 MG IVP (23:56)
[2025-05-18 00:15] VITALS: BP 133/99; PULSE 96; RESP 18; O2SAT 93
== END 2025-05-18 00:18 | disposition home or self-care (01) ==
PROVIDERS: Emergency Provider Family Medicine; PCP Family Medicine
DX: I50.23 Acute on chronic systolic (congestive) heart failure (principal); J10.1 Influenza due to other identified influenza virus with other respiratory manifestations; I42.0 Dilated cardiomyopathy
CPT/HCPCS: 36415; 71046; 80048; 83880; 85025; 87631; 96374; 99285; A9270; J1938